=== PATIENT | female | born 1970 | race Caucasian/White ===

== ENCOUNTER → 2016-11-30 | Outpatient (CLI) | payer OTHER ==
[~2016-11-30] MED LIST: ANTIVERT25 MG PO; ATARAX25 MG PO; ATENOLOL25 MG PO; ATIVAN1 MG PO; ATIVAN2 MG PO; BACTRIM DS 8001 TAB PO; BENTYL10 MG PO; BIAXIN500 MG PO; CETIRIZINE HYDR10 MG PO; CIPRO500 MG PO; CIPROFLOXACIN500 MG PO; CORDROL20 MG PO; CYCLOBENZAPRINE10 MG PO; CYCLOBENZAPRINE5 MG PO; DARVOCET N 1001 TAB PO; DAYPRO600 M1 PO; DIFLUCAN150 MG PO; DOXYCYCLINE100 M3 PO; FLEXERIL10 MG PO; FLEXERIL5 MG PO; Fioricet 325 MG1 TAB PO; HYDROCODONE BIT1 T11 PO; KEFLEX500 MG PO; LAMICTAL200 MG PO; LEVOFLOXACIN500 MG PO; LEVOTHYROXINE PO; LISINOPRIL HCTZ1 TA1 PO; LISINOPRIL20 MG PO; MACROBID100 M1 PO; MEDROL DOSEPAK4 MG PO; METICORTEN1 MG; MIRALAX POWDER255 GM PO; MOTRIN800 MG PO; Motrin,Rufen800 MG PO; NAPROSYN500 MG PO; NORCO 5-325 TA1 EACH PO; PAROXETINE HCL20 MG PO; PHENERGAN25 M1 PO; PREDNICOT20 MG PO; PREDNISONE10 MG PO; PREDNISONE20 MG PO; PYRIDIUM200 MG PO; QUETIAPINE FUM300 M1 PO; ROBAXIN500 MG PO; ROBAXIN750 MG PO; ROBITUSSIN AC 110 ML PO; SEROQUEL200 MG PO; SEROQUEL300 MG PO; SEROQUEL400 MG PO; SYNTHROID,LEV200 MCG PO; SYNTHROID0.025 MG PO; TORADOL10 MG PO; TRAMADOL HCL50 MG PO; ULTRAM50 MG PO; VIBRAMYCIN100 MG PO; VICODIN 5/500 505 MG PO; VICODIN 500 MG-1 TAB PO; VICODIN ES 7501 TAB PO; VOLTAREN75 MG PO; ZANAFLEX4 M1 PO; ZITHROMAX Z PA250 MG PO; ZOLPIDEM TART10 MG PO
== END | disposition home or self-care (01) ==
LOC: MRI 11-23 11:00
DX: S99.912A Unspecified injury of left ankle, initial encounter (principal); M25.472 Effusion, left ankle; X58.XXXA Exposure to other specified factors, initial encounter; Y93.89 Activity, other specified; Y92.89 Other specified places as the place of occurrence of the external cause; Y99.8 Other external cause status; M65.872 Other synovitis and tenosynovitis, left ankle and foot

== ENCOUNTER 2017-05-24 09:45 | Emergency (ER) | payer OTHER ==
[~2017-05-24] VITALS: Wt 113.4 kg
[2017-05-24 09:53] VITALS: BP 133/84
[2017-05-24] MEDS ORDERED: VISTARIL25 MG PO (10:33)
== END 2017-05-24 11:09 | disposition home or self-care (01) ==
LOC: ED 09:45
DX: G47.00 Insomnia, unspecified (principal); Z79.899 Other long term (current) drug therapy; Z88.0 Allergy status to penicillin; Z90.89 Acquired absence of other organs; Z90.710 Acquired absence of both cervix and uterus

== ENCOUNTER 2017-06-28 09:43 | Emergency (ER) | payer OTHER ==
[~2017-06-28] VITALS: Ht 167.6 cm; Wt 113.4 kg
[~2017-06-28 09:43] MED LIST changes: +VISTARIL25 MG PO
[2017-06-28 10:18] VITALS: BP 138/106
[2017-06-28] MEDS ORDERED: CLINDAMYCIN HC300 MG PO (10:26)
[2017-06-28] MEDS ORDERED: GUAIFENESIN AC473 M1 PO (10:26)
== END 2017-06-28 10:50 | disposition home or self-care (01) ==
LOC: ED 09:43
DX: J32.9 Chronic sinusitis, unspecified (principal); R05 Cough; Z90.89 Acquired absence of other organs; Z90.710 Acquired absence of both cervix and uterus; Z79.899 Other long term (current) drug therapy; Z88.0 Allergy status to penicillin

== ENCOUNTER 2017-08-22 08:22 | Emergency (ER) | payer OTHER ==
[~2017-08-22] VITALS: Ht 167.6 cm; Wt 113.4 kg
[~2017-08-22 08:22] MED LIST changes: +CLINDAMYCIN HC300 MG PO; +GUAIFENESIN AC473 M1 PO
[2017-08-22 08:27] VITALS: BP 134/88
[2017-08-22] MEDS ORDERED: TESSALON PERLE100 M1 PO (09:21)
[2017-08-22] MEDS ORDERED: ZITHROMAX250 MG PO (09:21)
[2017-08-22] MEDS ORDERED: ZYRTEC10 MG PO (09:21)
[2017-08-22] MEDS ORDERED: ROBITUSSIN DM 105 ML PO (09:41)
== END 2017-08-22 10:54 | disposition home or self-care (01) ==
LOC: ED 08:22
DX: J01.90 Acute sinusitis, unspecified (principal); Z88.0 Allergy status to penicillin; Z79.899 Other long term (current) drug therapy; Z90.710 Acquired absence of both cervix and uterus; Z90.89 Acquired absence of other organs

== ENCOUNTER 2017-10-14 00:19 | Emergency (ER) | payer OTHER ==
[~2017-10-14] VITALS: Ht 165.1 cm; Wt 145.1 kg
[~2017-10-14 00:19] MED LIST changes: +ROBITUSSIN DM 105 ML PO; +TESSALON PERLE100 M1 PO; +ZITHROMAX250 MG PO; +ZYRTEC10 MG PO
[2017-10-14 01:33] VITALS: BP 92/13
[2017-10-14 01:55] LABS: HEMATOCRIT 37.2 % (37.0-47.0); HEMOGLOBIN 11.1 g/dl (12.0-16.0); MEAN CORPUSCULAR HGB 33.1 pg (27.0-31.0); MEAN CORPUSCULAR HGB CONC 29.8 g/dl (33.0-37.0); MEAN PLATELET VOLUME 9.6 fl (9.6-12.3); NUCLEATED RED BLOOD CELL 0.1 10*3/uL (0.0-0.0); NUCLEATED RED BLOOD CELL 0.2 % (0.0-0.0); PLATELET COUNT AUTOMATED 313 10*3/uL (130-400); RED BLOOD COUNT 3.35 10*6/uL (4.10-5.10); RED CELL DISTRI WIDTH 13.2 % (0-14.5); WHITE BLOOD COUNT 29.1 10*3/uL (4.8-10.8)
[2017-10-14 02:06] LABS: ACT PARTIAL THROMBO TIME 58.7 SECONDS (20.8-31.5); INTERNATIONAL NORM RATIO 1.7 (2.0-3.5)
[2017-10-14 02:13] LABS: ALBUMIN 2.9 gm/dl (3.1-4.5); ALKALINE PHOSPHATASE 237 U/L (45-117); BUN 38 mg/dl (7-24); CHLORIDE 105 mmol/L (98-107); CREATININE 3.37 mg/dL (0.55-1.02); LIPASE 353 U/L (73-393); POTASSIUM 5.5 mmol/L (3.5-5.1); SGOT/AST 114 IU/L (3-35); SGPT/ALT 102 U/L (12-78); SODIUM 148 mmol/L (136-145); TOTAL PROTEIN 6.1 gm/dL (6.4-8.2)
[2017-10-14 02:14] LABS: ETHYL ALCOHOL < 3.0 mg/dl (<3); TROPONIN I 0.259 ng/ml (<0.045)
[2017-10-14 02:20] LABS: PLATELET SUFFICIENCY NORMAL (NORMAL); TOTAL CELLS COUNTED 100 #CELLS
[2017-10-14 02:21] LABS: BURR CELLS FEW
== END 2017-10-14 02:02 | disposition expired ==
LOC: ED 00:19
PROVIDERS: Emergency Medicine Emergency Medical Services
DX: I46.9 Cardiac arrest, cause unspecified (principal); K92.2 Gastrointestinal hemorrhage, unspecified; F31.9 Bipolar disorder, unspecified; Z90.89 Acquired absence of other organs; Z90.710 Acquired absence of both cervix and uterus; Z79.899 Other long term (current) drug therapy; Z88.0 Allergy status to penicillin